=== PATIENT | male | born 1945 | race Caucasian/White ===

== ENCOUNTER 2024-10-08 14:17 | Day surgery (SDC) | payer MEDICARE, BC ==
[2024-10-05 13:25] LABS: BASOPHILS # (AUTO) 0.1 X10'3 (0-0.2); BASOPHILS % (AUTO) 0.8 % (0-1); EOSINOPHILS # (AUTO) 0.2 X10'3 (0-0.9); EOSINOPHILS % (AUTO) 2.6 % (0-6); HEMATOCRIT 46.5 % (42.0-52.0); HEMOGLOBIN 16.1 g/dl (14.0-17.9); LYMPHOCYTES # (AUTO) 1.1 X10'3 (1.1-4.8); LYMPHOCYTES % (AUTO) 13.8 % (21-51); MEAN CORPUSCULAR HEMOGLOBIN 31.4 PG (27.0-31.0); MEAN CORPUSCULAR HGB CONC 34.6 g/dL (33.0-36.5); MEAN CORPUSCULAR VOLUME 90.6 FL (78-98); MEAN PLATELET VOLUME 7.9 FL (7.4-10.4); MONOCYTES # (AUTO) 0.5 X10'3 (0-0.9); MONOCYTES % (AUTO) 5.8 % (2-12); PLATELET COUNT 201 X10'3 (140-440); RED BLOOD COUNT 5.13 X10'6 (4.70-6.10); RED CELL DISTRIBUTION WIDTH 13.2 % (11.5-14.5); WHITE BLOOD COUNT 7.8 X10'3 (4.5-11.0)
[2024-10-05 13:35] LABS: APTT 26 SECONDS (22-32); INR 1.1 INR; PROTHROMBIN TIME 11.2 SECONDS (9.0-12.0)
[2024-10-05 13:38] LABS: ALBUMIN 3.8 G/DL (3.4-5.0); ANION GAP 9 (8-16); BLOOD UREA NITROGEN 27 MG/DL (7-18); CHLORIDE 108 MMOL/L (99-107); CHOL/HDL RATIO 3.1 (0.00-4.99); CHOLESTEROL 98 MG/DL (0-200); GLUCOSE 137 MG/DL (70-104); HDL CHOLESTEROL 32 MG/DL (35-60); LDL CHOLESTEROL 54 MG/DL (50-100); POTASSIUM 4.3 MMOL/L (3.5-5.1); SODIUM 143 MMOL/L (135-145); TOTAL CARBON DIOXIDE 26.5 MMOL/L (24-32); TRIGLYCERIDES 95 MG/DL (20-135); eGFR 72 ML/MIN
[~2024-10-08] VITALS: Ht 177.8 cm; Wt 76.2 kg
[2024-10-08] VITALS (8 sets, daily range): BP systolic 136–161; BP diastolic 70–79; PULSE 74–82; RESP 12; TEMP 98.3; O2SAT 94–98
[~2024-10-08 14:17] MED LIST: ASPI-611 PO; ATOR40TA71 PO; LOP25T PO; LOSA-415 PO; NITR0.4T48 SL; PANT40TA54 PO; TADA5TAB2 PO
[2024-10-08] MEDS ORDERED: diphenhydrAMINE 25mg capsule PO PRN (14:40)
[2024-10-08] MEDS ORDERED: normal saline 1,000 ML IV SCH (14:40)
[2024-10-08] MEDS ORDERED: LORazepam 0.5 MG tablet PO PRN (14:40)
[2024-10-08] MEDS ORDERED: LOSA1TAB36 PO (15:31)
[2024-10-08] MEDS ORDERED: CLOP-32 PO (15:31)
[2024-10-08] MEDS ORDERED: FLO0.4C PO (15:31)
[2024-10-08] MEDS ORDERED: LOP12.5T PO (15:31)
[2024-10-08] MEDS ORDERED: ATOR20TA PO (15:31)
[2024-10-08] MEDS ORDERED: heparin 1,000unit/ml 10ml vial 0 ML ONE (16:07)
[2024-10-08] MEDS ORDERED: phenylephrine 10mg/ml inj. ONE (16:07)
[2024-10-08] MEDS ORDERED: atropine 0.1mg/ml 10ml syringe ONE (16:07)
[2024-10-08] MEDS ORDERED: iohexol 350MG/ML 100ml bottle IV ONE (16:07)
[2024-10-08] MEDS ORDERED: LIDOcaine 1% 30ml preserv. free vial ONE (16:07)
[2024-10-08] MEDS ORDERED: DOPamine 400mg/D5W 250ml 0 ML IV ONE (16:08)
[2024-10-08] MEDS ORDERED: hydrALAZINE 20mg/ml inj. ONE (17:06)
== END 2024-10-08 19:30 | disposition home or self-care (01) ==
LOC: SSTAY O 14:17
PROVIDERS: ATTEND Student in an Organized Health Care Education/Training Program
DX: I65.21 Occlusion and stenosis of right carotid artery (principal); I10 Essential (primary) hypertension; E78.5 Hyperlipidemia, unspecified; I25.10 Atherosclerotic heart disease of native coronary artery without angina pectoris; I25.2 Old myocardial infarction; Q25.49 Other congenital malformations of aorta; Z86.73 Personal history of transient ischemic attack (TIA), and cerebral infarction without residual deficits
CPT/HCPCS: 36222; 36415; 80048; 80061; 85025; 85610; 85730; 93005; A6258; C1760; C1894; J0360; J1644; J2003; J2371; J7030; Q9967; Z7610; J0461; J1265; J2370

== ENCOUNTER 2025-07-29 12:58 | Outpatient (CLI) | payer BC, MEDICARE, OTHER ==
[~2025-07-29 12:58] MED LIST changes: +ATOR20TA PO; -ATOR40TA71 PO; +CLOP-32 PO; +LOP12.5T PO; -LOP25T PO; -LOSA-415 PO; +LOSA1TAB36 PO; -NITR0.4T48 SL; -PANT40TA54 PO; +TAMS-55 PO
--- NOTE | 2025-07-29 14:50 | RADIOLOGY REPORT ---
CLINICAL INFORMATION: Right shoulder pain. TECHNIQUE: Multisequence multiplanar MRI images of the right shoulder were obtained without contrast. COMPARISON: None FINDINGS: Acromioclavicular joint: There is moderate acromioclavicular hypertrophy and moderate edema. There is Type 2 acromion. Moderate fluid in the subacromial / subdeltoid bursa. Rotator cuff tendons: [id number] tendinosis of the distal supraspinatus and infraspinatus tendons with partial-thickness bursal surface tear involving the anterior fibers of the supraspinatus tendon insertional footprint measuring up to 0.9 cm in AP dimension and 0.5 cm in transverse dimension, involving up to 50% of the tendon thickness. There is a focal full-thickness tear involving the mid to cephalad fibers of the subscapularis tendon measuring up to 1.9 cm in craniocaudal dimension with retraction of torn tendon fibers up to 1.6 cm. Teres minor tendon is intact. Biceps tendon: Tendinosis of the proximal long head biceps tendon along its intra-articular course with prominent intrasubstance signal, suspected ill- defined Longitudinal split tear extending to the proximal aspect of the bicipital groove. More distally the long head biceps tendon is intact. Labrum: Mild fraying of the superior labrum. Bones: No fracture or focal marrow contusion. Muscles: Normal muscle bulk. No atrophy. Other: No other significant findings. IMPRESSION: 1. Rotator cuff tendinosis with focal full-thickness tear of the subscapularis tendon and partial-thickness bursal surface tear at the supraspinatus insertional footprint. 2. Tendinosis of the proximal long head biceps tendon with suspected ill-defined longitudinal split tear. 3. Fraying of the superior labrum. 4. Moderate acromioclavicular hypertrophy with moderate fluid in the subacromial / subdeltoid bursa. 5. Additional findings as detailed above.
== END 2025-07-29 23:59 | disposition home or self-care (01) ==
LOC: MRI02 12:58
PROVIDERS: ATTEND Physician Assistant
DX: M75.121 Complete rotator cuff tear or rupture of right shoulder, not specified as traumatic (principal); M19.011 Primary osteoarthritis, right shoulder; M89.311 Hypertrophy of bone, right shoulder; M25.511 Pain in right shoulder; M75.41 Impingement syndrome of right shoulder; M75.51 Bursitis of right shoulder
CPT/HCPCS: 73221